=== PATIENT | male | born 1945 | race Caucasian/White ===

== ENCOUNTER 2018-12-01 13:05 | Emergency (ER) | payer BC, MEDICARE | END 2018-12-01 13:45 | disposition home or self-care (01) | LOC: BURERS 13:05 | DX: S61.212A Laceration without foreign body of right middle finger without damage to nail, initial encounter (principal); S61.214A Laceration without foreign body of right ring finger without damage to nail, initial encounter; E10.9 Type 1 diabetes mellitus without complications; I10 Essential (primary) hypertension; W22.8XXA Striking against or struck by other objects, initial encounter | CPT/HCPCS: 29125 ==